=== PATIENT | female | born 1955 | race Caucasian/White ===

== ENCOUNTER 2016-09-16 11:53 | Outpatient (CLI) | payer OTHER ==
--- NOTE | 2016-09-16 12:59 | DIAGNOSTIC IMAGING REPORT ---
PROCEDURE: CT SINUS/FACIAL BONES W/O CONT CLINICAL INDICATION: CHRONIC MAXILLARY SINUSITIS TECHNIQUE: Noncontrast axial CT images through the sinuses. Coronal and sagittal reformations were created. COMPARISON: Sinus CT 10/13/2014 FINDINGS: Bilateral antral windows. Mucoperiosteal thickening of both the frontal sinuses and the right maxillary sinus. The remaining paranasal sinuses are clear. No air-fluid levels. Left [place]. Mild right nasal septal deviation. IMPRESSION: 1. Bilateral antral windows 2. Mucoperiosteal thickening of both the frontal sinuses and the right maxillary sinus. 3. Mild right nasal septal deviation. 4. Small left [place] All CT scans at this facility use dose modulation, iterative reconstruction, and/or weight-based dosing when appropriate to reduce radiation dose to as low as reasonably achievable.
== END 2016-09-16 23:00 ==
LOC: CT SRH 11:53
DX: J32.1 Chronic frontal sinusitis (principal); J32.0 Chronic maxillary sinusitis; J34.2 Deviated nasal septum